=== PATIENT | female | born 1940 | race Two or more races ===

== ENCOUNTER 2017-01-01 14:02 | Emergency (ER) | payer OTHER ==
[2017-01-01 14:08] VITALS: BP 131/97; PULSE 91; TEMP 98.3; BMI 26.5
--- NOTE | 2017-01-01 14:50 | PDOC ---
History of Present Illness - General Chief Complaint: Allergic Reaction Stated Complaint: ALLERGIES Time Seen by Provider: 01/01/17 14:23 History Source: [employer] Used ([employer] [id number] ) Exam Limitations: Language Barrier - History of Present Illness Initial Comments: 01/01/17 14:45 76 yr female with itchy eyes, tearing eyes scratchy throat for 3 days and sneezing. no fever or chills, no shortness of breath no cough. 01/01/17 14:46 Past History - Past Medical History Allergies/Adverse Reactions: Allergies Allergy/AdvReac Type Severity Reaction Status Date / Time No Known Drug Allergies Allergy Verified 01/01/17 14:06 Home Medications: Ambulatory Orders Aspirin [Ecotrin] 81 mg PO DAILY 02/25/15 Telmisartan 80 mg PO DAILY 02/25/15 Ketotifen Fumarate [Allergy Eye Drops] 1 drop OU BID #1 bottle 01/01/17 Sitagliptin Phos/Metformin HCl [Janumet 50-1,000 mg Tablet] 1 each PO DAILY Cancer: Yes (uterine) Diabetes: Yes HTN: Yes Hypercholesterolemia: Yes - Surgical History Abdominal Surgery: Yes (hysterectomy) Cholecystectomy: Yes Orthopedic Surgery: Yes (knee) - Psycho/Social/Smoking Cessation Hx Anxiety: No Suicidal Ideation: No Smoking History: Never smoked Have you smoked in the past 12 months: No Hx Alcohol Use: No Drug/Substance Use Hx: No Substance Use Type: None Hx Substance Use Treatment: No Review of Systems - Review of Systems Able to Perform ROS?: Yes Is the patient limited Spanish proficient: Yes Constitutional: Yes: Symptoms Reported HEENTM: Yes: Symptoms Reported Respiratory: No: Cough, Wheezing *Physical Exam - Vital Signs Last Vital Signs Temp Pulse Resp BP Pulse Ox 98.3 F 91 H 18 131/97 98 01/01/17 14:05 01/01/17 14:05 01/01/17 14:05 01/01/17 14:05 01/01/17 14:05 - Physical Exam General Appearance: Yes: Nourished, Appropriately Dressed HEENT: positive: EOMI, KRIS, Pharynx Normal, Nasal Congestion, Other (bilateral conjunctival erythema, tearing , no discharge ) Neck: positive: Supple. negative: Lymphadenopathy (R), Lymphadenopathy (L) Respiratory/Chest: positive: Lungs Clear, Normal Breath Sounds Cardiovascular: positive: Regular Rhythm, Regular Rate Gastrointestinal/Abdominal: positive: Normal Bowel Sounds, Soft Musculoskeletal: positive: Normal Inspection Extremity: positive: Normal Capillary Refill, Normal Inspection, Normal Range of Motion Integumentary: positive: Normal Color, Dry, Warm Neurologic: positive: Fully Oriented, Alert, Normal Mood/Affect, Normal Response , Motor Strength 5 Medical Decision Making - Medical Decision Making 01/01/17 14:47 cc: tearing to bilateral eyes, red conjuncitva nasal congestion with some sneezing non toxic vitals are stable 01/01/17 14:48 *DC/Admit/Observation/Transfer Diagnosis at time of Disposition: Allergic rhinitis Qualifiers: Allergic rhinitis trigger: pollen Allergic rhinitis seasonality: seasonal Qualified Code(s): J30.1 - Allergic rhinitis due to pollen Allergic conjunctivitis and rhinitis Qualifiers: Laterality: bilateral Qualified Code(s): H10.13 - Acute atopic conjunctivitis, bilateral - Discharge Dispostion Disposition: HOME Condition at time of disposition: Good - Prescriptions Prescriptions: Ketotifen Fumarate [Allergy Eye Drops] 1 drop OU BID #1 bottle - Referrals Referrals: Rodo Glover MD [Primary Care Provider] - - Patient Instructions Additional Instructions: use the eye drops as directed take claritin daily follow with the ENT for follow up next week Return to ER for any worsening symptoms
== END 2017-01-01 15:02 | disposition home or self-care (01) ==
LOC: SUPCPDRO 14:02 → JERFT 14:02
DX: J30.1 Allergic rhinitis due to pollen (principal); H10.13 Acute atopic conjunctivitis, bilateral; I10 Essential (primary) hypertension; E11.9 Type 2 diabetes mellitus without complications; Z79.84 Long term (current) use of oral hypoglycemic drugs; E78.00 Pure hypercholesterolemia, unspecified; Z85.42 Personal history of malignant neoplasm of other parts of uterus
CPT/HCPCS: 99281-25